=== PATIENT | female | born 1935 | race Caucasian/White ===

== ENCOUNTER 2016-08-26 19:07 | Inpatient (IN) | payer MEDICARE, BC ==
[2016-08-26] MEDS ORDERED: FENTANYL CITRATE 50 MCG/ML SOL IV ONE ×2 (19:46→20:47)
[2016-08-26] MEDS: SODIUM CHLORIDE 0.9% 1000ML 750 ML IV SCH ×2 (19:51→23:14)
[2016-08-26 20:08] LABS: BASOPHILS % (AUTO) 1 % (0-3); EOSINOPHILS % (AUTO) 0 % (0-9); HEMATOCRIT 35 % (35-47); MEAN CORPUSCULAR HGB CONC 35.7 gm/dl (32.0-36.0); MEAN CORPUSCULAR VOLUME 92 fL (81-99); MONOCYTES % (AUTO) 5.5 % (0-12); NEUTROPHILS % (AUTO) 73.1 % (37-80)
[2016-08-26 20:22] LABS: ALBUMIN 3.7 gm/dl (3.4-5.0); CALCIUM 8.2 mg/dl (8.5-10.1)
[2016-08-26 21:04] LABS: APPEARANCE,URINE Slightly Cloudy; BILIRUBIN,URINE NEGATIVE (NEGATIVE); COLOR,URINE Yellow; GLUCOSE, URINE (UA) NEGATIVE (NEGATIVE); KETONES,URINE 1+ (NEGATIVE); LEUKOCYTE ESTERASE ,URINE 1+ (NEGATIVE); NITRATE,URINE POSITIVE (NEGATIVE); OCCULT BLOOD,URINE TRACE INTACT (NEG-TRACE); PH,URINE 7.5; UROBILINOGEN,URINE 0.2 (0.2-1.0 EU)
[2016-08-26 21:07] LABS: RBC,URINE 0-3 (0-3AV/HPF); WBC,URINE 25-30 (0-5AV/HPF)
[2016-08-26] MEDS ORDERED: PROMETHAZINE HYDROCHLORIDE 25 MG/ML SOL IV PRN (22:00)
[2016-08-26] MEDS: MORPHINE SULFATE 10 MG/ML SOL IV PRN (22:45)
[2016-08-26] MEDS: LEVOFLOXACIN 25 MG/ML 250 MG in SODIUM CHLORIDE 0.9% 100 ML 100 ML IV SCH (22:45)
[2016-08-26] MEDS: ENOXAPARIN 40 MG SOL SC SCH (22:46)
[2016-08-26] MEDS: PANTOPRAZOLE SODIUM 40 MG/10 ML PDS IV SCH (22:46)
[2016-08-26] MEDS ORDERED: PATIENT EDUCATION 1 MISC PRN (23:11)
[2016-08-27] MEDS: SODIUM CHLORIDE 0.9% 1000ML 1,000 ML IV SCH ×2 (02:51→15:09)
[2016-08-27] MEDS: MORPHINE SULFATE 10 MG/ML SOL IV PRN (02:57)
[2016-08-27] MEDS: PANTOPRAZOLE SODIUM 40 MG/10 ML PDS IV SCH (09:41)
[2016-08-27] MEDS: ENOXAPARIN 40 MG SOL SC SCH ×2 (09:44→21:30)
[2016-08-27 09:46] LABS: BASOPHILS % (AUTO) 1 % (0-3); EOSINOPHILS % (AUTO) 3 % (0-9); HEMATOCRIT 32 % (35-47); MEAN CORPUSCULAR HGB CONC 35.6 gm/dl (32.0-36.0); MEAN CORPUSCULAR VOLUME 94 fL (81-99); MONOCYTES % (AUTO) 7.5 % (0-12); NEUTROPHILS % (AUTO) 64.3 % (37-80)
[2016-08-27 09:49] LABS: ALBUMIN 3.1 gm/dl (3.4-5.0); CALCIUM 7.7 mg/dl (8.5-10.1); POTASSIUM 3.5 mMol/L (3.5-5.1)
[2016-08-27] MEDS: FLUTICASONE/SALMETEROL 250/50 1 PUFF DSK INH SCH ×3 (09:49→21:30)
[2016-08-27] MEDS ORDERED: ACETAMINOPHEN 325 MG PO ONE (10:05)
[2016-08-27] MEDS: LEVOTHYROXINE SODIUM 88 MCG TAB PO SCH (14:18)
[2016-08-27] MEDS ORDERED: SODIUM CHLORIDE 0.9% 100 ML 100 ML IV ONE (14:43)
[2016-08-27] MEDS ORDERED: PANTOPRAZOLE SODIUM 40 MG/10 ML PDS ONE (14:43)
[2016-08-27] MEDS: SODIUM CHLORIDE 0.9% 100 ML 80 ML with PANTOPRAZOLE SODIUM 40 MG VIAL 80 MG IV SCH (15:00)
[2016-08-27] MEDS: ACETAMINOPHEN 325 MG PO PRN ×2 (18:15→22:58)
[2016-08-27] MEDS: LEVOFLOXACIN 25 MG/ML 250 MG in SODIUM CHLORIDE 0.9% 100 ML 100 ML IV SCH (21:30)
[2016-08-27] MEDS ORDERED: SODIUM CHLORIDE 0.9% FLUSH 10 ML SOL IV PRN (21:37)
[2016-08-28] MEDS: SODIUM CHLORIDE 0.9% 100 ML 80 ML with PANTOPRAZOLE SODIUM 40 MG VIAL 80 MG IV SCH ×2 (01:21→11:50)
[2016-08-28] MEDS: ACETAMINOPHEN 325 MG PO PRN ×3 (03:00→20:25)
[2016-08-28] MEDS: SODIUM CHLORIDE 0.9% 1000ML 1,000 ML IV SCH (05:51)
[2016-08-28 07:30] LABS: BASOPHILS % (AUTO) 2 % (0-3); EOSINOPHILS % (AUTO) 6 % (0-9); HEMATOCRIT 33 % (35-47); MEAN CORPUSCULAR VOLUME 93 fL (81-99); MONOCYTES % (AUTO) 9.8 % (0-12); NEUTROPHILS % (AUTO) 47.3 % (37-80)
[2016-08-28 07:43] LABS: ALBUMIN 3.1 gm/dl (3.4-5.0); CALCIUM 7.8 mg/dl (8.5-10.1); POTASSIUM 3.4 mMol/L (3.5-5.1)
[2016-08-28] MEDS ORDERED: POTASSIUM CHLORIDE 2 MEQ/ML 40 MEQ, LIDOCAINE HCL 1% MDV 2 ML in SODIUM CHLORIDE 0.9% 5... IV ONE (07:59)
[2016-08-28] MEDS ORDERED: DOCUSATE SODIUM 100 MG SGL PO PRN (08:12)
[2016-08-28] MEDS ORDERED: POLYETHYLENE GLYCOL 17 GM/1 TBS PDS PO PRN (08:12)
[2016-08-28 08:18] LABS: MAGNESIUM 1.4 mg/dl (1.8-2.4)
[2016-08-28] MEDS: FLUTICASONE/SALMETEROL 250/50 1 PUFF DSK INH SCH ×2 (08:49→20:20)
[2016-08-28] MEDS ORDERED: POTASSIUM CHLORIDE 2 MEQ/ML SOL IV ONE (09:04)
[2016-08-28] MEDS ORDERED: LIDOCAINE HCL 1% MPF SOL ONE (09:04)
[2016-08-28] MEDS: MULTIVITAMIN2 1 EA TAB PO SCH (09:18)
[2016-08-28] MEDS: ENOXAPARIN 40 MG SOL SC SCH ×2 (10:16→22:20)
[2016-08-28] MEDS ORDERED: PANTOPRAZOLE SODIUM 40 MG/10 ML PDS ONE (11:26)
[2016-08-28] MEDS ORDERED: SODIUM CHLORIDE 0.9% 100 ML 100 ML IV ONE (11:26)
[2016-08-28] MEDS: LEVOTHYROXINE SODIUM 88 MCG TAB PO SCH (14:57)
[2016-08-28] MEDS: BACLOFEN 10 MG TAB PO SCH ×2 (14:58→16:09)
[2016-08-28] MEDS ORDERED: BACLOFEN 10 MG TAB PO SCH ×2 (17:00)
[2016-08-28 20:32] VITALS: RESP 18
[2016-08-28] MEDS ORDERED: GABAPENTIN 300 MG CAP PO SCH (21:00)
[2016-08-28] MEDS: LEVOFLOXACIN 25 MG/ML 250 MG in SODIUM CHLORIDE 0.9% 100 ML 100 ML IV SCH (21:49)
[2016-08-29] MEDS ORDERED: PANTOPRAZOLE SODIUM 40 MG/10 ML PDS ONE (00:05)
[2016-08-29] MEDS ORDERED: SODIUM CHLORIDE 0.9% 100 ML 100 ML IV ONE (00:06)
[2016-08-29] MEDS: SODIUM CHLORIDE 0.9% 1000ML 1,000 ML IV SCH (00:13)
[2016-08-29] MEDS: SODIUM CHLORIDE 0.9% 100 ML 80 ML with PANTOPRAZOLE SODIUM 40 MG VIAL 80 MG IV SCH ×2 (00:15→08:46)
[2016-08-29] MEDS: LEVOTHYROXINE SODIUM 88 MCG TAB PO SCH (06:02)
[2016-08-29 07:34] LABS: BASOPHILS % (AUTO) 2 % (0-3); EOSINOPHILS % (AUTO) 8 % (0-9); HEMATOCRIT 31 % (35-47); MEAN CORPUSCULAR HGB CONC 35.2 gm/dl (32.0-36.0); MEAN CORPUSCULAR VOLUME 94 fL (81-99); MONOCYTES % (AUTO) 9.8 % (0-12)
[2016-08-29 08:01] VITALS: BP 130/70; PULSE 66; TEMP 97.3; O2SAT 99
[2016-08-29] MEDS: FLUTICASONE/SALMETEROL 250/50 1 PUFF DSK INH SCH (08:35)
[2016-08-29] MEDS: MULTIVITAMIN2 1 EA TAB PO SCH (08:36)
[2016-08-29] MEDS ORDERED: PANTOPRAZOLE SODIUM 40 MG ECT PO SCH (09:00)
[2016-08-29] MEDS ORDERED: MAGNESIUM OXIDE 400 MG TAB PO SCH (09:00)
[2016-08-29] MEDS ORDERED: LEVOFLOXACIN 500 MG TAB PO SCH (09:00)
== END 2016-08-29 13:55 | disposition home or self-care (01) | DRG 392 ==
LOC: ED 19:07 → ACUTE CARE 21:37
PROVIDERS: ADMIT Family Medicine; ATTEND Family Medicine
PROC: 0DJ08ZZ Inspection of Upper Intestinal Tract, Via Natural or Artificial Opening Endoscopic (ICD-10-PCS; principal; 2016-08-27 10:30)
DX: R10.31 Right lower quadrant pain (principal); N39.0 Urinary tract infection, site not specified; K59.00 Constipation, unspecified; Z90.49 Acquired absence of other specified parts of digestive tract; R10.12 Left upper quadrant pain; E03.9 Hypothyroidism, unspecified; K29.70 Gastritis, unspecified, without bleeding
CPT/HCPCS: 36415; 74177; 80053; 81001; 83735; 84100; 84132; 85025; 87077; 87088; 87186; 96365; 96366; 96374; 99070; 99222; 99285; J1650; J2001; J2550; J3010; J3480; Q9967; J2704

== ENCOUNTER 2017-05-31 22:03 | Emergency (ER) | payer MEDICARE, BC ==
[2017-05-31] MEDS ORDERED: APAP/HYDROCODONE 325/5 TAB PO ONE (22:33)
[2017-05-31] MEDS ORDERED: APAP/HYDROCODONE 325/5 TAB ONE (22:34)
[2017-05-31 23:39] VITALS: BP 154/98; PULSE 110; RESP 24; TEMP 100.6; O2SAT 93
== END 2017-05-31 23:24 | disposition home or self-care (01) | DRG 204 ==
LOC: ED 22:03
DX: R07.81 Pleurodynia (principal)
CPT/HCPCS: 99283

== ENCOUNTER 2018-05-11 10:42 | Emergency (ER) | payer MEDICARE, BC ==
[2018-05-11] MEDS ORDERED: SODIUM CHLORIDE 0.9% FLUSH 10 ML SOL IV PRN (10:55)
[2018-05-11] MEDS ORDERED: NICARDIPINE HCL 25 MG in SODIUM CHLORIDE 0.9% 250 ML 250 ML IV PRN (11:06)
[2018-05-11] MEDS ORDERED: ALTEPLASE, RECOMBINANT 50 MG PDS IV ONE ×3 (11:06→11:15)
[2018-05-11] MEDS ORDERED: LABETALOL HYDROCHLORIDE 5 MG/ML SOL IV PRN (11:06)
[2018-05-11 11:07] LABS: BASOPHILS % (AUTO) 1 % (0-3); EOSINOPHILS % (AUTO) 1 % (0-9); HEMATOCRIT 39 % (35-47); HEMOGLOBIN 12.9 gm/dl (12.0-15.5); LYMPHOCYTES % (AUTO) 19.3 % (10-50); MEAN CORPUSCULAR HEMOGLOBIN 32.4 pg (27.0-32.0); MEAN CORPUSCULAR HGB CONC 32.9 gm/dl (32.0-36.0); MEAN CORPUSCULAR VOLUME 98 fL (81-99); MONOCYTES % (AUTO) 6.8 % (0-12); NEUTROPHILS % (AUTO) 71.6 % (37-80)
[2018-05-11 11:20] LABS: INR 0.97 (0.86-1.12)
[2018-05-11 11:24] LABS: BLOOD UREA NITROGEN 17 mg/dl (7-18); CARBON DIOXIDE 29.2 mEq/L (21-32); CHLORIDE 104 mMol/L (98-107); CREATININE 0.97 mg/dl (0.60-1.00); GLUCOSE 78 mg/dl (74-106); POTASSIUM 3.8 mMol/L (3.5-5.1); SODIUM 142 mMol/L (136-145); TROP I < 0.017 ng/ml (0.000-0.056)
[2018-05-11 11:51] VITALS: TEMP 97.6
[2018-05-11 12:14] VITALS: BP 149/74; PULSE 74; RESP 16; O2SAT 98
== END 2018-05-11 12:00 | disposition short-term general hospital (02) | DRG 556 ==
LOC: ED 10:42
DX: M62.81 Muscle weakness (generalized) (principal); R29.705 NIHSS score 5; R53.83 Other fatigue
CPT/HCPCS: 70450; 80048; 82962; 84484; 85025; 85610; 85730; 93005; 96365; 96374; 99291; J2997

== ENCOUNTER 2018-06-12 16:37 | Emergency (ER) | payer MEDICARE, BC ==
[2018-06-12] MEDS ORDERED: APAP/HYDROCODONE 1 EACH TABLET PO ONE (17:19)
[2018-06-12] MEDS ORDERED: APAP/HYDROCODONE 1 EACH TABLET ONE (17:26)
[2018-06-12] MEDS ORDERED: SODIUM CHLORIDE 0.9% 1000ML 1,000 ML IV ONE (17:58)
[2018-06-12 18:22] LABS: BASOPHILS % (AUTO) 2 % (0-3); EOSINOPHILS % (AUTO) 7 % (0-9); HEMATOCRIT 36 % (35-47); HEMOGLOBIN 11.7 gm/dl (12.0-15.5); LYMPHOCYTES % (AUTO) 29.2 % (10-50); MEAN CORPUSCULAR HEMOGLOBIN 31.9 pg (27.0-32.0); MEAN CORPUSCULAR HGB CONC 32.5 gm/dl (32.0-36.0); MEAN CORPUSCULAR VOLUME 98 fL (81-99); MONOCYTES % (AUTO) 9.3 % (0-12)
[2018-06-12 18:26] LABS: CALCIUM 8.7 mg/dl (8.5-10.1); CARBON DIOXIDE 31.6 mEq/L (21-32); CREATININE 0.87 mg/dl (0.60-1.00)
[2018-06-12 18:48] VITALS: TEMP 97.8
[2018-06-12 21:20] VITALS: RESP 20; O2SAT 97
[2018-06-12 21:21] VITALS: BP 125/70; PULSE 77
== END 2018-06-12 21:15 | disposition home or self-care (01) | DRG 556 ==
LOC: ED 16:37
DX: M79.601 Pain in right arm (principal); M79.602 Pain in left arm; E86.0 Dehydration
CPT/HCPCS: 36415; 80048; 84484; 85025; 93005; 96365; 96366; 99283; 99284; A9270-GY

== ENCOUNTER 2018-10-05 17:40 | Emergency (ER) | payer MEDICARE, BC ==
[2018-10-05 17:47] VITALS: TEMP 97.9
[2018-10-05] MEDS ORDERED: SODIUM CHLORIDE 0.9% 500 ML 500 ML IV ONE (17:51)
[2018-10-05] MEDS ORDERED: ONDANSETRON HCL 4 MG/2 ML SOL IV ONE (17:51)
[2018-10-05] MEDS ORDERED: APAP/HYDROCODONE 1 EACH TABLET PO ONE (17:53)
[2018-10-05] MEDS ORDERED: ONDANSETRON HCL 4 MG/2 ML SOL ONE (18:02)
[2018-10-05] MEDS ORDERED: APAP/HYDROCODONE 1 EACH TABLET ONE (18:02)
[2018-10-05 18:14] LABS: CALCIUM 8.9 mg/dl (8.5-10.1); CARBON DIOXIDE 26.8 mEq/L (21-32); CREATININE 0.83 mg/dl (0.60-1.00); POTASSIUM 4.2 mMol/L (3.5-5.1)
[2018-10-05 18:21] LABS: BASOPHILS % (AUTO) 1 % (0-3); EOSINOPHILS % (AUTO) 0 % (0-9); HEMATOCRIT 44 % (35-47); HEMOGLOBIN 14.4 gm/dl (12.0-15.5); LYMPHOCYTES % (AUTO) 15.9 % (10-50); MEAN CORPUSCULAR HEMOGLOBIN 30.9 pg (27.0-32.0); MEAN CORPUSCULAR HGB CONC 32.7 gm/dl (32.0-36.0); MEAN CORPUSCULAR VOLUME 94 fL (81-99); MONOCYTES % (AUTO) 7.1 % (0-12)
[2018-10-05 18:51] VITALS: RESP 18
[2018-10-05 18:53] LABS: APPEARANCE,URINE Cloudy; BILIRUBIN,URINE NEGATIVE (NEGATIVE); COLOR,URINE Yellow; GLUCOSE, URINE (UA) NEGATIVE (NEGATIVE); KETONES,URINE 1+ (NEGATIVE); LEUKOCYTE ESTERASE ,URINE 3+ (NEGATIVE); NITRATE,URINE POSITIVE (NEGATIVE); OCCULT BLOOD,URINE 1+ (NEG-TRACE); UROBILINOGEN,URINE 0.2 (0.2-1.0 EU)
[2018-10-05 19:03] LABS: BACTERIA 3+ (< 1+); CRYSTALS NEGATIVE (0-3 AVE/HPF); EPITHELIAL CELLS 0-1 (SQUAMOUS); RBC,URINE 0-3 (0-3AV/HPF)
[2018-10-05] MEDS ORDERED: CEFTRIAXONE 1 GM PDS 1 GM in SODIUM CHLORIDE 0.9% 50 ML 50 ML IV ONE (19:05)
[2018-10-05] MEDS ORDERED: CEFTRIAXONE 1 GM PDS ONE (19:06)
[2018-10-05 20:04] VITALS: BP 148/92; PULSE 78; O2SAT 94
== END 2018-10-05 20:30 | disposition home or self-care (01) | DRG 392 ==
LOC: ED 17:40
DX: R11.2 Nausea with vomiting, unspecified (principal); N39.0 Urinary tract infection, site not specified; G43.909 Migraine, unspecified, not intractable, without status migrainosus; E03.9 Hypothyroidism, unspecified
CPT/HCPCS: 80048; 81001; 83880; 85025; 87077; 87088; 87186; 96365; 96374; 99283; 99284; J0696; J2405; A9270-GY